=== PATIENT | female | born 1950 | race Caucasian/White ===

== ENCOUNTER 2019-02-10 09:26 | Emergency (ER) | payer OTHER ==
[~2019-02-10] VITALS: Ht 172.7 cm; Wt 61.0 kg
[~2019-02-10 09:26] MED LIST: DONE10TA7 PO; DULO60CA60 PO; LEVO100T8 PO; MELA3TAB51 PO; OLAN10TA32 PO; QUET25TA33 PO; SIMV40TA20 PO; THIA100T75 PO
[2019-02-10 09:36] VITALS: Ht 172.7 cm; Wt 61.0 kg
[2019-02-10 12:28] VITALS: BP 111/74; PULSE 76; RESP 16
== END 2019-02-10 12:35 | disposition home or self-care (01) ==
LOC: E/R 09:26
DX: S09.90XA Unspecified injury of head, initial encounter (principal); I10 Essential (primary) hypertension; E03.9 Hypothyroidism, unspecified; R51 Headache; W01.198A Fall on same level from slipping, tripping and stumbling with subsequent striking against other object, initial encounter; Y92.128 Other place in nursing home as the place of occurrence of the external cause
CPT/HCPCS: 70450; 72125